=== PATIENT | female | born 2000 | race Caucasian/White ===

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

== ENCOUNTER 2020-01-02 08:23 | Emergency (ER) | payer MEDICAID ==
[~2020-01-02] VITALS: Ht 160 cm; Wt 56.4 kg
[2020-01-02 08:40] VITALS: Ht 160 cm; Wt 56.4 kg
[2020-01-02 09:10] LABS: BASOPHILS 0.1 % (0-2); EOSINOPHILS 1.8 % (0-7); HEMATOCRIT 42.2 % (36.0-48.0); HEMOGLOBIN 14.2 g/dL (12-16); IMMATURE GRANULOCYTES 0.3 % (0-5); LYMPHOCYTES 23.8 % (15-50); MCHC 33.6 g/dL (31.0-37.0); MCV 89.2 fL (80.0-100.0); MONOCYTES 5.8 % (2-11); NEUTROPHILS 68.2 % (40-80); PLATELET COUNT 170 10x3/uL (130-400); RBC 4.73 10x6/uL (4.00-5.40); RDW 13.4 % (11.5-14.5); WBC 10.2 10x3/uL (4.8-10.8)
[2020-01-02 09:11] LABS: BILIRUBIN NEGATIVE (NEGATIVE); GLUCOSE NEGATIVE (NEGATIVE); KETONE NEGATIVE (NEGATIVE); NITRITE NEGATIVE (NEGATIVE); UROBILINOGEN NORMAL (NORMAL)
[2020-01-02 09:15] LABS: BACTERIA FEW /hpf (NEGATIVE); EPITHELIAL CELLS 0-5 /hpf (0-5); RED CELLS - URINE 0-5 /hpf (0-5); WHITE CELLS - URINE RARE /hpf (NEGATIVE)
[2020-01-02 09:21] LABS: CALC OSMOLALITY 275 mosm/kg (275-300); CALCIUM 9.1 mg/dL (8.5-10.1); CARBON DIOXIDE 23.9 mmol/L (21.0-32.0); CHLORIDE - SERUM 107 mmol/L (98-107); CREATININE - SERUM 0.9 mg/dL (0.6-1.3); GLUCOSE 93 mg/dL (74-106); POTASSIUM - SERUM 3.8 mmol/L (3.5-5.1); SODIUM 139 mmol/L (136-145); UREA NITROGEN 6 mg/dL (7-18); eGFR NON AFRICAN AMERICAN 85 mL/min (90-120)
[2020-01-02 09:22] LABS: HCG SERUM NEGATIVE (NEGATIVE)
[2020-01-02 09:27] LABS: ALBUMIN 3.9 g/dL (3.4-5.0); ALKALINE PHOSPHATASE 59 U/L (30-120); ALT (SGPT) 19 U/L (10-68); AMYLASE - SERUM 35 U/L (25-115); BILIRUBIN - TOTAL 0.78 mg/dL (0.2-1.3); LIPASE 73 U/L (73-393); PROTEIN - SERUM 6.1 g/dL (6.4-8.2)
[2020-01-02] MEDS ORDERED: BENTYL 20 MG TA20 MG PO (11:14)
[2020-01-02] MEDS ORDERED: ULTRAM50 MG PO (11:14)
[2020-01-02 11:26] VITALS: BP 127/79
== END 2020-01-02 11:26 | disposition home or self-care (01) ==
LOC: D.ER 08:23
PROVIDERS: Family Medicine
DX: R25.2 Cramp and spasm (principal); R10.30 Lower abdominal pain, unspecified